=== PATIENT | female | born 1990 | race American Indian/Alaskan Native ===

== ENCOUNTER 2022-07-15 11:41 | Emergency (ER) | payer MEDICAID ==
[2022-07-15 11:52] VITALS: BP 123/75
--- NOTE | 2022-07-15 12:20 | Emergency Department Report ---
ED Dysuria HPI - HPI Chief Complaint: Nausea/Vomiting/Diarrhea Stated Complaint: VOMITTING/STOMACH PAIN Duration: 2 Days Severity: Mild Symptoms: Dysuria: No, Frequency: No, Suprapubic Pain: No, Flank Pain: No, Fever: No, Hematuria: No, Abdominal Pain: No, Previous UTI's: Yes Other History: Patient is a 32-year-old female that comes to the emergency room complaining of suprapubic pain and nausea and vomiting. She states that she has irregular periods. She has been on control in the past but due to her job she is not been able to follow-up with OB so she is off control. I new pect that she is here for concerns for . Although she denies this. Patient is ambulatory, nontoxic [id number] on exam ED Review of Systems ROS: Stated complaint: VOMITTING/STOMACH PAIN Other details as noted in HPI Comment: All other systems reviewed and negative ED Past Medical Hx - Past Medical History Previous Medical History?: No - Surgical History Past Surgical History?: No - Family History Family history: no significant - Social History Smoking Status: Never Smoker Substance Use Type: None - Medications Home Medications: Home Medications Medication Instructions Recorded Confirmed Last Taken Type Ondansetron [Zofran Odt] 4 mg PO Q8HR PRN #10 tab.rapdis 07/15/22 Unknown Rx Dysuria Exam - Exam General: Vital signs noted. No distress. Alert and acting appropriately. Exam: Yes Moist Mucous Membranes, No CVA Tenderness, No Abdominal Tenderness, No Rigidity or Guarding ED Course Vital Signs 07/15/22 11:47 Temperature 98.9 F Pulse Rate 92 H Respiratory 14 Rate Blood Pressure 123/75 [Right] O2 Sat by Pulse 100 Oximetry ED Medical Decision Making - Medical Decision Making Vital Signs 07/15/22 11:47 Temperature 98.9 F Pulse Rate 92 H Respiratory 14 Rate Blood Pressure 123/75 [Right] O2 Sat by Pulse 100 Oximetry Labs 07/15/22 12:26 Urine Color Yellow Urine Turbidity Slightly-cloudy Urine pH 6.0 Ur Specific [place] 1.017 Urine Protein <15 mg/dl Urine Glucose (UA) Neg Urine Ketones Neg Urine Blood Neg Urine Nitrite Neg Urine Bilirubin Neg Urine Urobilinogen < 2 Ur Leukocyte Esterase Tr Urine WBC (Auto) 5.0 Urine RBC (Auto) 2.0 U Epithel Cells (Auto) 6.0 Urine Bacteria (Auto) 1+ Urine HCG, Qual Negative Patient denies any dysuria, back pain, fever or chills. Denies any vaginal di scharge. UA noted. preg negative Patient's last [employer] exam was a year ago. I have encouraged her to follow-up with [employer] regarding her control concerns. In the meantime I have encouraged backup control. Patient verbalizes understanding. Patient ambulatory, nontoxic [id number] and taking p.o. on discharge exam. Patient requesting a work note. Patient discharged home with discharge plan of care including diet, activity medications and follow-up. - Differential Diagnosis Rule out , UTI Critical care attestation.: If time is entered above; I have spent that time in minutes in the direct care of this critically ill patient, excluding procedure time. ED Disposition Clinical Impression: Vomiting Disposition: 01 HOME / SELF CARE / HOMELESS Is pt being admited?: No Does the pt Need Aspirin: No Condition: Stable Instructions: Nausea and Vomiting, Adult Additional Instructions: zofran for nausea if needed follow up with pcp referral below follow up with obgyn referral below diet as tolerated stay well hydrated with water Prescriptions: Ondansetron [Zofran Odt] 4 mg PO Q8HR PRN #10 tab.rapdis PRN Reason: Vomiting Referrals: TJ WICK MD [Primary Care Provider] - 3-5 Days TONIO WARREN MD [Staff Physician] - 3-5 Days Forms: Accompanied Note, Work/School Release Form(ED) Time of Disposition: 12:53
[2022-07-15 12:44] LABS: Bilirubin,Urine NEG (Negative); Blood,Urine NEG (Negative); Color,Urine Yellow (Yellow); Protein,Urine <15 mg/dL mg/dL (Negative)
[2022-07-15 12:46] LABS: Bacteria,Urine 1+ /HPF (Negative); Urobilinogen,Urine < 2 mg/dL (<2.0)
[2022-07-15 12:51] LABS: HCG Qualitative,Urine Negative (Negative)
== END 2022-07-15 13:16 | disposition home or self-care (01) ==
LOC: ED 11:41
DX: R11.2 Nausea with vomiting, unspecified (principal)
CPT/HCPCS: 81001; 81025; 99283